=== PATIENT | female | born 1955 | race Caucasian/White ===

== ENCOUNTER → 2024-03-24 | Outpatient (CLI) | payer MEDICARE, BC, SELFPAY | END | disposition home or self-care (01) | PROVIDERS: Referring Provider Urology; Visit Provider Urology | DX: N39.0 Urinary tract infection, site not specified (principal) | CPT/HCPCS: 87077; 87086; 87088; 87186 ==

== ENCOUNTER → 2024-11-06 | Outpatient (CLI) | payer MEDICARE, BC, SELFPAY ==
--- NOTE | 2024-11-06 08:22 | MRI_ITS ---
PROCEDURE: SPINE LUMBAR (ROUTINE) 11/06/2024 REASON FOR EXAM: SPONDYLOSIS TECHNIQUE: Multiplanar and multisequence images were obtained without IV contrast administration. COMPARISON: None. FINDINGS: Vertebrae: Moderate diffuse spondylosis. Moderate multilevel degenerative disc disease. Moderate chronic changes of Baastrup's disease. Moderate chronic changes of Scheuermann's disease. Alignment: Reverse S shaped scoliosis. Conus Medullaris: Terminates at L1, unremarkable. T10-T11: Mild diffuse disc bulge. Bilateral facet joint arthropathy and ligamentum flavum hypertrophy. The spinal canal is mildly narrowed. There is mild bilateral neural foraminal narrowing. T11-T12: Grade 1 anterolisthesis measuring 3.5 mm. Mild diffuse disc bulge. Bilateral facet joint arthropathy and ligamentum flavum hypertrophy. The spinal canal is mildly narrowed. There is mild bilateral neural foraminal narrowing. T12-L1: There is mild diffuse disc bulge. Bilateral facet joint arthropathy and ligamentum flavum hypertrophy. The spinal canal is not narrowed. There is mild bilateral neural foramina narrowing. L1-2: Moderate diffuse disc bulge. Bilateral facet joint arthropathy and ligamentum flavum hypertrophy. The spinal canal is mildly narrowed. Moderate bilateral neural foraminal narrowing. L2-3: Moderate diffuse disc bulge. Bilateral facet joint arthropathy and ligamentum flavum hypertrophy. The spinal canal is moderately narrowed. There is moderate bilateral neural foraminal narrowing. L3-4: Moderate diffuse disc bulge. Bilateral facet joint arthropathy and ligamentum flavum hypertrophy. The spinal canal is moderately narrowed. There is severe right and moderate left neural foraminal narrowing. L4-5: Grade 1 anterolisthesis measuring 3.7 mm. Moderate diffuse disc bulge. Superimposed left paracentral disc extrusion measuring 1.6 x 0.6 cm in its largest craniocaudal and anteroposterior dimensions respectively. Cranial subligamentous slippage of the herniated disc without sequestration. Bilateral facet joint arthropathy and ligamentum flavum hypertrophy. The spinal canal is moderately narrowed. There is moderate right and severe left neural foraminal narrowing. L5-S1: Grade 1 anterolisthesis measuring 4.7 mm. Moderate diffuse disc bulge. Bilateral facet joint arthropathy and ligamentum flavum hypertrophy. The spinal canal is mildly narrowed. There is severe right and moderate left neural foraminal narrowing. Sacrum: Unremarkable. MRI/Spine Lumbar (Routine) IMPRESSION: Spondylosis. Degenerative disc disease. [facility]
== END | disposition home or self-care (01) ==
LOC: MRI 08:03
PROVIDERS: Referring Provider Anesthesiology; Visit Provider Anesthesiology
DX: M47.816 Spondylosis without myelopathy or radiculopathy, lumbar region (principal)
CPT/HCPCS: 72148